=== PATIENT | female | born 1965 | race Caucasian/White ===

== ENCOUNTER 2017-08-15 14:14 | Emergency (ER) | payer MEDICAID ==
[2017-08-15 14:21] VITALS: TEMP 97.9; O2SAT 98
[2017-08-15] MEDS ORDERED: Bacitracin 500 Units/gm Oint Foilpak UD TOP ONE (14:37)
--- NOTE | 2017-08-15 14:40 | C.PDOC ---
History Of Present Illness 52 yr old female presents to the s/p slipped down the stairs after missing 3 stairs. Patient states she fell face forward on her knees, hitting her face against the ground 30 minutes ago, sustaining abrasions to the forehead, nose and above the upper lip. Patient also reports of pain to the left hand, 3rd digit. Patient denies LOC, vision changes, chest pain, SOB, nausea, vomiting, neck pain, back pain, severe headache, weakness or numbness. Patient is not UTD on Tetanus. 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) Current Symptoms Are (Timing): Still Present Past Medical History Reviewed: Historical Data, Nursing Documentation, Vital Signs Vital Signs: Last Vital Signs Temp 97.9 F 08/15/17 14:16 Pulse 85 08/15/17 16:06 Resp 18 08/15/17 16:06 BP 126/75 08/15/17 16:06 Pulse Ox 98 08/15/17 19:10 - Medical History PMH: Anemia, Diabetes, Fractures (Fractured left foot, 1 year ago), HTN - [facility] TETANUS TOXOID ADMINIST (11/14/13) Family History: States: No Known Family Hx - Social History Hx Tobacco Use: No Hx Alcohol Use: No Hx Substance Use: No - Immunization History Hx Tetanus Toxoid Vaccination: No Hx Influenza Vaccination: No Hx Pneumococcal Vaccination: No Review Of Systems Except As Marked, All Systems Reviewed And Found Negative. Eyes: Negative for: Vision Change Cardiovascular: Negative for: Chest Pain Respiratory: Negative for: Shortness of Breath Gastrointestinal: Negative for: Nausea, Vomiting Musculoskeletal: Positive for: Other ((+) Left hand, 3rd digit pain). Negative for: Neck Pain, Back Pain Skin: Positive for: Other ((+) Abrasions to the forehead, nose and above upper lip) Neurological: Negative for: Weakness, Numbness, Headache Physical Exam - Physical Exam Appears: Non-toxic, In Acute Distress (Mild painful distress) Skin: Warm, Dry, No Rash Head: Atraumatic, Normacephalic, Abrasion (Center of the forehead) Nose: Other ((+) Abrasions to the nasal bridge and tip of the nose) Oral Mucosa: Moist Tongue: Normal Appearing, No Swelling, No Lesions Lips: Normal Appearing, Other ((+) Abrasion above the upper lip. Lips themselves look normal.) Teeth: Normal Dentition Throat: Normal, No Erythema, No Exudate Neck: Normal, Normal ROM, No Midline Cervical Tenderness, No Paracervical Tenderness, Supple Cardiovascular: Rhythm Regular, No Murmur Respiratory: Normal Breath Sounds, No Rales, No Rhonchi, No Stridor, No Wheezing Back: Normal Inspection, No CVA Tenderness Extremity: Normal ROM, No Swelling Neurological/Psych: Oriented x3, Normal Speech, Normal Motor, Normal Sensation ED Course And Treatment O2 Sat by Pulse Oximetry: 98 (RA) Pulse Ox Interpretation: Normal - CT Scan/US CT - Head Other Rad Studies (CT/US): Read By Radiologist, Radiology Report Reviewed CT/US Interpretation: PROCEDURE: CT HEAD WITHOUT CONTRAST. HISTORY: trauma fall. COMPARISON: None available. TECHNIQUE: Axial computed tomography images were obtained through the head/brain without intravenous contrast. Radiation dose: Total exam DLP = 843.47 mGy-cm. This CT exam was performed using one or more of the following dose reduction techniques: Automated exposure control, adjustment of the mA and/or kV according to patient size, and/ or use of iterative reconstruction technique. FINDINGS: HEMORRHAGE: No intracranial hemorrhage. BRAIN: No mass effect or edema. Mcneil-white matter differentiation appears intact. Please note that MRI with diffusion imaging is more sensitive in the detection of acute ischemic event. VENTRICLES: No hydrocephalus. CALVARIUM: Unremarkable. PARANASAL SINUSES: Unremarkable as visualized. No significant inflammatory changes. MASTOID AIR CELLS: Unremarkable as visualized. No inflammatory changes. OTHER FINDINGS: None. IMPRESSION: No acute intracranial pathology identified. Progress Note: Patient is brought UTD on Tetanus. Medical Decision Making Medical Decision Making: PLAN: * CT - Head * Tylenol PO * Tetanus IM CT head (-). CT results d/w the patient and with family. On re-evaluation, patient remains awake, alert and oriented x3, with normal neuro exam. Disposition Counseled Patient/Family Regarding: Studies Performed, Diagnosis, Need For Followup - Disposition Referrals: [facility] [Outside] Disposition: HOME/ ROUTINE Disposition Time: 16:00 Condition: STABLE Additional Instructions: Follow up with your pmd or the clinic in 2 days without fail. Clean and dress wound daily with soap and water. Avoid sun exposure to the wounds. Take over the counter tylenol for pain. Return to the ER at any time for any new or worsening symptoms. 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 - Scribe Statement The provider has reviewed the documentation as recorded by the Scribe Roz Kumar All medical record entries made by the Deniaibmo were at my direction and personally dictated by me. I have reviewed the chart and agree that the record accurately reflects my personal performance of the history, physical exam, medical decision making, and the department course for this patient. I have also personally directed, reviewed, and agree with the discharge instructions and disposition.
[2017-08-15] MEDS ORDERED: Bacitracin 500 Units/gm Oint Foilpak UD ONE (14:49)
--- NOTE | 2017-08-15 15:56 | CT ---
PROCEDURE: CT HEAD WITHOUT CONTRAST. HISTORY: trauma fall COMPARISON: None available. TECHNIQUE: Axial computed tomography images were obtained through the head/brain without intravenous contrast. Radiation dose: Total exam DLP = 843.47 mGy-cm. This CT exam was performed using one or more of the following dose reduction techniques: Automated exposure control, adjustment of the mA and/or kV according to patient size, and/or use of iterative reconstruction technique. FINDINGS: HEMORRHAGE: No intracranial hemorrhage. BRAIN: No mass effect or edema. Mcneil-white matter differentiation appears intact. Please note that MRI with diffusion imaging is more sensitive in the detection of acute ischemic event. VENTRICLES: No hydrocephalus. CALVARIUM: Unremarkable. PARANASAL SINUSES: Unremarkable as visualized. No significant inflammatory changes. MASTOID AIR CELLS: Unremarkable as visualized. No inflammatory changes. OTHER FINDINGS: None. IMPRESSION: No acute intracranial pathology identified.
[2017-08-15 16:07] VITALS: BP 126/75; PULSE 85; RESP 18
== END 2017-08-15 16:08 | disposition home or self-care (01) ==
LOC: C.ER 14:14
DX: S00.81XA Abrasion of other part of head, initial encounter (principal); S80.02XA Contusion of left knee, initial encounter; S80.01XA Contusion of right knee, initial encounter; W10.8XXA Fall (on) (from) other stairs and steps, initial encounter; Y92.89 Other specified places as the place of occurrence of the external cause; Z23 Encounter for immunization